=== PATIENT | male | born 1985 | race Caucasian/White ===

== ENCOUNTER 2024-07-13 07:36 | Day surgery (SDC) | payer BC ==
[~2024-07-13 07:36] MED LIST: CEFAZOLIN 2 G in IV DEXTROSE 5% 100 ML IV ONE
[2024-07-13] MEDS ORDERED: MIDAZOLAM HCL 2 MG/2 ML VIAL ONE (08:37)
[2024-07-13] MEDS ORDERED: FENTANYL CITRATE 100 MCG/2 ML AMPUL ONE ×3 (08:37→12:25)
[2024-07-13] MEDS ORDERED: BUPIVACAINE/EPI PF 0.25% 10 ML VIAL IJ ONE ×2 (10:14→10:15)
[2024-07-13] MEDS ORDERED: THROMBIN (BOVINE) 5,000 UNITS VIAL ONE (10:41)
[2024-07-13] MEDS: FENTANYL CITRATE 100 MCG/2 ML AMPUL IV PRN (12:03)
[2024-07-13 13:20] VITALS: TEMP 97.6
== END 2024-07-13 13:49 | disposition home or self-care (01) ==
LOC: DS 07:36
PROVIDERS: ATTEND Surgery
DX: K64.1 Second degree hemorrhoids (principal); K64.4 Residual hemorrhoidal skin tags; G89.29 Other chronic pain; K62.89 Other specified diseases of anus and rectum; K62.5 Hemorrhage of anus and rectum; G47.00 Insomnia, unspecified; Z79.899 Other long term (current) drug therapy; Z98.890 Other specified postprocedural states
CPT/HCPCS: 46260; 45300; J3490 ×2; J0690; J2250; J3010 ×3; J7120; A4649; A4663

== ENCOUNTER 2024-07-22 09:56 | Emergency (ER) | payer BC ==
[~2024-07-22] VITALS: Ht 185.4 cm; Wt 93.0 kg
[2024-07-22] MEDS ORDERED: MAGNESIUM SULFATE/D5W 100 ML IV SCH (10:30)
[2024-07-22] MEDS ORDERED: MORPHINE SULFATE 2 MG/1 ML DISP.SYRIN ONE (10:35)
[2024-07-22] MEDS ORDERED: MORPHINE SULFATE 4 MG/1 ML DISP.SYRIN ONE (10:35)
[2024-07-22] MEDS: MORPHINE SULFATE 4 MG/1 ML DISP.SYRIN IV ONE (10:42)
[2024-07-22] MEDS ORDERED: MAGNESIUM HYDROXIDE 30 ML LIQUID UDC ONE (10:56)
[2024-07-22] MEDS: MAGNESIUM HYDROXIDE 30 ML LIQUID UDC PO ONE (10:58)
[2024-07-22] MEDS ORDERED: LIDOCAINE 2% (GLYDO= UROJET) 10 ML JELLY MM ONE (11:25)
[2024-07-22] MEDS ORDERED: FLEET ENEMA 133 ML BOTTLE RC ONE (12:43)
[2024-07-22] MEDS: FLEET ENEMA 133 ML BOTTLE RC ONE (13:00)
[2024-07-22] MEDS ORDERED: BISA-79 PO (13:54)
[2024-07-22] MEDS ORDERED: BISA10SU61 RC (13:54)
[2024-07-22 14:04] VITALS: BP 118/70; O2SAT 98
== END 2024-07-22 14:05 | disposition home or self-care (01) ==
LOC: ER 10:14
DX: K56.41 Fecal impaction (principal); Z87.19 Personal history of other diseases of the digestive system
CPT/HCPCS: 74018; A4606; A4663; J2270